=== PATIENT | female | born 1965 | race Caucasian/White ===

== ENCOUNTER → 2017-03-02 | Outpatient (CLI) | payer MEDICARE ==
[~2017-03-02] MED LIST: ANAS1TAB PO; DEXA2TAB PO; GADOBUTROL 7.5 MMOL/7.5 ML VIAL ONE; HYDR5SUS PO; LETR2.5T PO; METH500T7 PO; OXYC5CAP4 PO
== END | disposition home or self-care (01) ==
LOC: CFH 09:09
PROVIDERS: ATTEND Neurological Surgery
DX: C79.31 Secondary malignant neoplasm of brain (principal); C76.8 Malignant neoplasm of other specified ill-defined sites; G93.89 Other specified disorders of brain; Z98.890 Other specified postprocedural states
CPT/HCPCS: 70553; A9585

== ENCOUNTER → 2017-04-14 | Outpatient (CLI) | payer MEDICARE ==
[~2017-04-14] MED LIST changes: -GADOBUTROL 7.5 MMOL/7.5 ML VIAL ONE; +OMNIPAQUE 350 MG/ML, 100ML BOTTLE ONE
== END | disposition home or self-care (01) ==
LOC: CFH 14:31
PROVIDERS: ATTEND Internal Medicine Hematology & Oncology
DX: C50.912 Malignant neoplasm of unspecified site of left female breast (principal); C79.51 Secondary malignant neoplasm of bone; R91.8 Other nonspecific abnormal finding of lung field; G95.89 Other specified diseases of spinal cord; K76.9 Liver disease, unspecified; Z90.49 Acquired absence of other specified parts of digestive tract; Z90.710 Acquired absence of both cervix and uterus
CPT/HCPCS: 71260; 74177; Q9967

== ENCOUNTER → 2017-06-01 | Outpatient (CLI) | payer MEDICARE ==
[~2017-06-01] MED LIST changes: +DEXA4TAB PO; +GADOBUTROL 7.5 MMOL/7.5 ML VIAL ONE; +LAPA250T PO; -OMNIPAQUE 350 MG/ML, 100ML BOTTLE ONE
== END | disposition home or self-care (01) ==
LOC: CFH 14:36
PROVIDERS: ATTEND Radiology Radiation Oncology
DX: C79.31 Secondary malignant neoplasm of brain (principal); C50.919 Malignant neoplasm of unspecified site of unspecified female breast; G93.6 Cerebral edema
CPT/HCPCS: 70553; A9585

== ENCOUNTER → 2017-06-05 | Outpatient (CLI) | payer MEDICARE ==
[~2017-06-05] MED LIST changes: -GADOBUTROL 7.5 MMOL/7.5 ML VIAL ONE
== END | disposition home or self-care (01) ==
LOC: ROC 14:40
PROVIDERS: ATTEND Radiology Radiation Oncology
DX: C50.912 Malignant neoplasm of unspecified site of left female breast (principal); C78.02 Secondary malignant neoplasm of left lung; C78.01 Secondary malignant neoplasm of right lung; C79.51 Secondary malignant neoplasm of bone; C79.31 Secondary malignant neoplasm of brain; C78.7 Secondary malignant neoplasm of liver and intrahepatic bile duct; Z92.21 Personal history of antineoplastic chemotherapy
CPT/HCPCS: G0463

== ENCOUNTER → 2017-10-02 | Outpatient (CLI) | payer MEDICARE ==
[~2017-10-02] MED LIST changes: +OMNIPAQUE 350 MG/ML, 100ML BOTTLE ONE; +OXYC5CAP2 PO; -OXYC5CAP4 PO
== END | disposition home or self-care (01) ==
LOC: CFH 12:39
PROVIDERS: ATTEND Internal Medicine Hematology & Oncology
DX: R91.8 Other nonspecific abnormal finding of lung field (principal); C50.912 Malignant neoplasm of unspecified site of left female breast; K76.89 Other specified diseases of liver; M89.8X8 Other specified disorders of bone, other site
CPT/HCPCS: 71260; 74177; Q9967

== ENCOUNTER → 2017-10-05 | Outpatient (CLI) | payer MEDICARE ==
[~2017-10-05] MED LIST changes: +GADOBUTROL 7.5 MMOL/7.5 ML PFS ONE; -OMNIPAQUE 350 MG/ML, 100ML BOTTLE ONE
== END | disposition home or self-care (01) ==
LOC: CFH 08:27
PROVIDERS: ATTEND Radiology Radiation Oncology
DX: C79.31 Secondary malignant neoplasm of brain (principal); C50.919 Malignant neoplasm of unspecified site of unspecified female breast; E11.9 Type 2 diabetes mellitus without complications
CPT/HCPCS: 70553; A9585

== ENCOUNTER → 2017-10-25 | Outpatient (CLI) | payer MEDICARE ==
[~2017-10-25] MED LIST changes: -GADOBUTROL 7.5 MMOL/7.5 ML PFS ONE
== END | disposition home or self-care (01) ==
LOC: ROC 10:48
PROVIDERS: ATTEND Radiology Radiation Oncology
DX: Z08 Encounter for follow-up examination after completed treatment for malignant neoplasm (principal); C50.919 Malignant neoplasm of unspecified site of unspecified female breast; C78.00 Secondary malignant neoplasm of unspecified lung; C78.7 Secondary malignant neoplasm of liver and intrahepatic bile duct; C79.31 Secondary malignant neoplasm of brain; Z92.21 Personal history of antineoplastic chemotherapy
CPT/HCPCS: G0463

== ENCOUNTER → 2017-11-27 | Outpatient (CLI) | payer MEDICARE | LOC: ROC 09:06 | PROVIDERS: ATTEND Radiology Radiation Oncology | DX: Z02.9 Encounter for administrative examinations, unspecified (principal) ==

== ENCOUNTER → 2018-04-27 | Outpatient (CLI) | payer MEDICARE ==
[~2018-04-27] MED LIST changes: +LEVE500T53 PO; +MULT-231 PO
== END | disposition home or self-care (01) ==
LOC: CVU 11:40
PROVIDERS: ATTEND Internal Medicine Hematology & Oncology
DX: C50.912 Malignant neoplasm of unspecified site of left female breast (principal)
CPT/HCPCS: 93306

== ENCOUNTER 2018-05-04 07:59 | Inpatient (IN) | payer MEDICARE ==
[~2018-05-04] VITALS: Ht 154.9 cm; Wt 52.0 kg
[2018-05-04] MEDS ORDERED: MORPHINE SULFATE 4 MG/ML, 1ML ONE (08:44)
[2018-05-04] MEDS ORDERED: SODIUM CHLORIDE FLUSH 10ML SYR IVF ONE (09:00)
[2018-05-04] MEDS ORDERED: MORPHINE SULFATE 4 MG/ML, 1ML IVPush PRN (09:00)
[2018-05-04 09:44] LABS: MEAN CORPUSCULAR HEMOGLOBIN 33.2 pg (27.0-34.8); MEAN CORPUSCULAR HGB CONC 34.2 g/dL (32.4-35.8); MEAN CORPUSCULAR VOLUME 96.9 fL (80-100); MEAN PLATELET VOLUME 8.3 fL (7.4-10.4); PLATELET COUNT 143 x10^3/uL (130-400); RED BLOOD COUNT 3.63 x10^6/uL (3.82-5.3); RED CELL DISTRIBUTION WIDTH 16.4 % (9.6-15.2)
[2018-05-04 09:50] LABS: ALBUMIN 2.7 g/dL (3.4-5.0); ANION GAP 7 mmol/L (5-15); CALCIUM 8.8 mg/dL (8.5-10.1); CHLORIDE 109 mmol/L (98-107); CREATININE 0.52 mg/dL (0.55-1.02)
[2018-05-04] MEDS ORDERED: GLUCAGON 1 MG IM PRN (10:30)
[2018-05-04] MEDS ORDERED: ACETAMINOPHEN 325 MG TABLET PO PRN (10:30)
[2018-05-04] MEDS ORDERED: DEXTROSE 4 GM TAB.CHEW PO PRN (10:30)
[2018-05-04] MEDS: DEXAMETHASONE 4 MG TABLET PO SCH ×3 (10:30→20:51)
[2018-05-04] MEDS ORDERED: DOCUSATE 100 MG CAPSULE PO PRN (10:30)
[2018-05-04] MEDS ORDERED: DEXTROSE 50%, 50ML SYRINGE IVPush PRN (10:30)
[2018-05-04] MEDS ORDERED: ONDANSETRON ODT 4 MG PO PRN (10:30)
[2018-05-04] MEDS ORDERED: POLYETHYLENE GLYCOL 17 GM PACKET PO PRN (10:30)
[2018-05-04] MEDS ORDERED: METHOCARBAMOL 500 MG TABLET PO PRN (10:30)
[2018-05-04 10:35] LABS: MD YES
[2018-05-04 10:36] LABS: <PLATELET ESTIMATE> ADEQUATE; <PLT MORPHOLOGY> NORMAL PLT MORPH; <RBC MORPHOLOGY> NORMAL; BAND#(MANUAL) 0.22 x10^3/uL; BANDS%(MANUAL) 2 % (0-7); LYMPH#(MANUAL) 0.22 x10^3/uL (1-3.4); LYMPHS% (MANUAL) 2 % (22-44); SEG#(MANUAL) 10.66 x10^3/uL (1.8-6.8); SEGS% (MANUAL) 96 % (42-75)
[2018-05-04 10:57] LABS: THYROID STIMULATING HORMONE 0.431 mIU/L (0.358-3.740)
[2018-05-04] MEDS ORDERED: ENALAPRILAT 1.25 MG/ML, 2ML IV PRN (11:00)
[2018-05-04] MEDS ORDERED: CALCIUM CARBONATE 500 MG TAB.CHEW PO PRN (11:00)
[2018-05-04] MEDS ORDERED: POTASSIUM CHLORIDE 20 MEQ TAB.ER.PRT PO ONE (11:00)
[2018-05-04] MEDS ORDERED: DEXAMETHASONE 4 MG TABLET ONE (11:01)
[2018-05-04] MEDS ORDERED: LORazepam 2 MG/ML, 1ML ONE (12:03)
[2018-05-04] MEDS ORDERED: GADOBUTROL 10 MMOL/10 ML PFS ONE (12:36)
[2018-05-04] MEDS: PANTOPRAZOLE 40 MG IV IVPush SCH (14:45)
[2018-05-04] MEDS: HEPARIN 5,000 UNITS/ML, 1ML SQ SCH ×2 (14:45→20:50)
[2018-05-04] MEDS: INSULIN LISPRO 100 UNITS/ML, PEN SQ-INSULIN SCH ×3 (15:00→20:50)
[2018-05-04] MEDS: CALCIUM CARBONATE 500 MG TAB.CHEW PO SCH ×2 (15:55→20:52)
[2018-05-04] MEDS: MORPHINE SULFATE 4 MG/ML, 1ML IVPush PRN (15:55)
[2018-05-04 16:26] LABS: MICROSCOPIC AUTO
[2018-05-04 16:29] LABS: CULTURE INDICATED? YES
[2018-05-04] MEDS ORDERED: ALUMINUM/MAG/SIMETHICONE 30 ML UDC PO PRN (18:00)
[2018-05-04 19:20] VITALS: BP 146/77
[2018-05-04] MEDS: SODIUM CHLORIDE FLUSH 10ML SYR IVF SCH (20:51)
[2018-05-05 01:06] VITALS: BP 139/89
[2018-05-05 05:39] LABS: MEAN CORPUSCULAR HEMOGLOBIN 33.3 pg (27.0-34.8); MEAN CORPUSCULAR VOLUME 97.9 fL (80-100); MEAN PLATELET VOLUME 8.8 fL (7.4-10.4); PLATELET COUNT 128 x10^3/uL (130-400); RED BLOOD COUNT 3.43 x10^6/uL (3.82-5.3); RED CELL DISTRIBUTION WIDTH 16.8 % (9.6-15.2)
[2018-05-05 05:45] LABS: ANION GAP 6 mmol/L (5-15); CALCIUM 9.7 mg/dL (8.5-10.1); CHLORIDE 108 mmol/L (98-107)
[2018-05-05] MEDS: HEPARIN 5,000 UNITS/ML, 1ML SQ SCH ×3 (06:10→21:26)
[2018-05-05 06:17] LABS: MD YES
[2018-05-05 06:20] LABS: BAND#(MANUAL) 2.19 x10^3/uL; BANDS%(MANUAL) 19 % (0-7); LYMPH#(MANUAL) 0.92 x10^3/uL (1-3.4); LYMPHS% (MANUAL) 8 % (22-44); MONOS#(MANUAL) 0.58 x10^3/uL (0.3-2.7); MONOS% (MANUAL) 5 % (2-9); SEG#(MANUAL) 7.82 x10^3/uL (1.8-6.8); SEGS% (MANUAL) 68 % (42-75)
[2018-05-05 06:21] LABS: <PLATELET ESTIMATE> DECREASED; <PLT MORPHOLOGY> NORMAL PLT MORPH; POLYCHROMASIA 1+
[2018-05-05 06:23] LABS: TOXIC GRAN 1+
[2018-05-05 07:24] VITALS: BP 147/90
[2018-05-05] MEDS: DEXAMETHASONE 4 MG TABLET PO SCH ×3 (08:05→21:26)
[2018-05-05] MEDS: CALCIUM CARBONATE 500 MG TAB.CHEW PO SCH ×3 (08:05→21:26)
[2018-05-05] MEDS: CHOLECALCIFEROL 1,000 UNIT TABLET PO SCH (08:05)
[2018-05-05] MEDS: PANTOPRAZOLE 40 MG IV IVPush SCH (08:05)
[2018-05-05] MEDS: SODIUM CHLORIDE FLUSH 10ML SYR IVF SCH ×2 (08:06→21:27)
[2018-05-05] MEDS: INSULIN LISPRO 100 UNITS/ML, PEN SQ-INSULIN SCH ×4 (08:08→21:30)
[2018-05-05] MEDS: MORPHINE SULFATE 4 MG/ML, 1ML IVPush PRN ×4 (08:17→18:11)
[2018-05-05 10:34] LABS: INTERNATIONAL NORMALIZED RATIO 0.88 (0.93-1.1); PROTHROMBIN TIME 9.1 Seconds (9.6-11.5)
[2018-05-05 14:00] VITALS: BP 137/89
[2018-05-05 18:49] VITALS: BP 145/94
[2018-05-05] MEDS: KETOROLAC 30 MG/1 ML IVPush PRN (19:37)
[2018-05-06 01:06] VITALS: BP 138/91
[2018-05-06] MEDS: MORPHINE SULFATE 4 MG/ML, 1ML IVPush PRN ×5 (04:10→19:24)
[2018-05-06] MEDS: HEPARIN 5,000 UNITS/ML, 1ML SQ SCH ×3 (04:44→20:55)
[2018-05-06] MEDS: KETOROLAC 30 MG/1 ML IVPush PRN ×3 (04:44→18:34)
[2018-05-06 05:15] VITALS: BP 136/81
[2018-05-06 05:24] LABS: MEAN CORPUSCULAR HEMOGLOBIN 33.3 pg (27.0-34.8); MEAN CORPUSCULAR HGB CONC 34.2 g/dL (32.4-35.8); MEAN CORPUSCULAR VOLUME 97.4 fL (80-100); MEAN PLATELET VOLUME 8.8 fL (7.4-10.4); PLATELET COUNT 119 x10^3/uL (130-400); RED BLOOD COUNT 3.55 x10^6/uL (3.82-5.3); RED CELL DISTRIBUTION WIDTH 16.6 % (9.6-15.2)
[2018-05-06 05:36] LABS: ALANINE AMINOTRANSFERASE 68 U/L (12-78); ALBUMIN 2.1 g/dL (3.4-5.0); ANION GAP 6 mmol/L (5-15); CALCIUM 9.9 mg/dL (8.5-10.1); CHLORIDE 104 mmol/L (98-107); CREATININE 0.53 mg/dL (0.55-1.02)
[2018-05-06 05:39] LABS: ALKALINE PHOSPHATASE 156 U/L (45-117); BILIRUBIN,TOTAL 0.4 mg/dL (0.2-1.0); TOTAL PROTEIN 6.6 g/dL (6.4-8.2)
[2018-05-06 05:51] LABS: MD YES
[2018-05-06 05:54] LABS: <PLATELET ESTIMATE> DECREASED; <PLT MORPHOLOGY> NORMAL PLT MORPH; ANISOCYTOSIS 1+; BAND#(MANUAL) 1.96 x10^3/uL; BANDS%(MANUAL) 20 % (0-7); LYMPHS% (MANUAL) 1 % (22-44); MONOS% (MANUAL) 1 % (2-9); SEG#(MANUAL) 7.64 x10^3/uL (1.8-6.8); SEGS% (MANUAL) 78 % (42-75)
[2018-05-06 07:10] VITALS: BP 147/87
[2018-05-06] MEDS: CHOLECALCIFEROL 1,000 UNIT TABLET PO SCH (08:15)
[2018-05-06] MEDS: SODIUM CHLORIDE FLUSH 10ML SYR IVF SCH ×2 (08:15→19:24)
[2018-05-06] MEDS: DEXAMETHASONE 4 MG TABLET PO SCH ×3 (08:15→20:55)
[2018-05-06] MEDS: CALCIUM CARBONATE 500 MG TAB.CHEW PO SCH ×3 (08:15→20:55)
[2018-05-06] MEDS: PANTOPRAZOLE 40 MG IV IVPush SCH (08:18)
[2018-05-06] MEDS: CEFTRIAXONE PMX 2GM/50ML 50 ML IV SCH (08:18)
[2018-05-06] MEDS: INSULIN LISPRO 100 UNITS/ML, PEN SQ-INSULIN SCH ×4 (08:28→20:40)
[2018-05-06 12:35] VITALS: BP 129/84
[2018-05-06 18:53] VITALS: BP 124/83
[2018-05-06] MEDS: INSULIN GLARGINE 100 UNITS/ML, PEN SQ-INSULIN SCH (20:56)
[2018-05-07] MEDS: MORPHINE SULFATE 4 MG/ML, 1ML IVPush PRN ×7 (00:12→21:52)
[2018-05-07] MEDS: KETOROLAC 30 MG/1 ML IVPush PRN (00:12)
[2018-05-07 03:25] VITALS: BP 146/87
[2018-05-07 04:30] LABS: MEAN CORPUSCULAR HGB CONC 34.3 g/dL (32.4-35.8); MEAN CORPUSCULAR VOLUME 96.2 fL (80-100); RED BLOOD COUNT 3.23 x10^6/uL (3.82-5.3); RED CELL DISTRIBUTION WIDTH 16.6 % (9.6-15.2)
[2018-05-07 04:37] LABS: ANION GAP 6 mmol/L (5-15); CALCIUM 9.3 mg/dL (8.5-10.1); CHLORIDE 105 mmol/L (98-107); CREATININE 0.42 mg/dL (0.55-1.02)
[2018-05-07 04:41] LABS: MD YES
[2018-05-07 04:42] LABS: MEAN PLATELET VOLUME 9.6 fL (7.4-10.4); PLATELET COUNT 96 x10^3/uL (130-400)
[2018-05-07 04:44] LABS: ANISOCYTOSIS 1+; BAND#(MANUAL) 2.16 x10^3/uL; BANDS%(MANUAL) 27 % (0-7); LYMPH#(MANUAL) 0.48 x10^3/uL (1-3.4); LYMPHS% (MANUAL) 6 % (22-44); NRBC % (MANUAL) 2 % (0-1); SEG#(MANUAL) 5.36 x10^3/uL (1.8-6.8); SEGS% (MANUAL) 67 % (42-75)
[2018-05-07 04:45] LABS: <PLATELET ESTIMATE> DECREASED; LARGE PLATELETS 1+; POLYCHROMASIA 1+
[2018-05-07] MEDS: HEPARIN 5,000 UNITS/ML, 1ML SQ SCH ×3 (05:21→21:54)
[2018-05-07 06:31] VITALS: BP 122/80
[2018-05-07] MEDS: CEFTRIAXONE PMX 2GM/50ML 50 ML IV SCH (08:13)
[2018-05-07] MEDS: DEXAMETHASONE 4 MG TABLET PO SCH ×3 (08:14→21:53)
[2018-05-07] MEDS: CALCIUM CARBONATE 500 MG TAB.CHEW PO SCH ×3 (08:14→21:52)
[2018-05-07] MEDS: PANTOPRAZOLE 40 MG IV IVPush SCH (08:14)
[2018-05-07] MEDS: CHOLECALCIFEROL 1,000 UNIT TABLET PO SCH (08:14)
[2018-05-07] MEDS: INSULIN LISPRO 100 UNITS/ML, PEN SQ-INSULIN SCH ×4 (08:15→21:53)
[2018-05-07] MEDS: SODIUM CHLORIDE FLUSH 10ML SYR IVF SCH ×2 (09:00→21:52)
[2018-05-07 12:00] VITALS: BP 155/95
[2018-05-07] MEDS: DOXYCYCLINE 100 MG in DEXTROSE 5% 250 ML IV SCH (16:40)
[2018-05-07] MEDS: NYSTATIN 500,000 UNITS/5 ML UDC PO SCH ×2 (16:41→21:52)
[2018-05-07 19:01] VITALS: BP 157/92
[2018-05-07] MEDS: INSULIN GLARGINE 100 UNITS/ML, PEN SQ-INSULIN SCH (21:53)
[2018-05-08] MEDS: HEPARIN 5,000 UNITS/ML, 1ML SQ SCH ×3 (00:50→21:16)
[2018-05-08] MEDS: NYSTATIN 500,000 UNITS/5 ML UDC PO SCH ×4 (00:50→21:16)
[2018-05-08] MEDS: MORPHINE SULFATE 4 MG/ML, 1ML IVPush PRN ×8 (01:54→21:16)
[2018-05-08 01:58] VITALS: BP 148/88
[2018-05-08] MEDS: DOXYCYCLINE 100 MG in DEXTROSE 5% 250 ML IV SCH ×2 (03:59→16:10)
[2018-05-08 07:55] VITALS: BP_SYST 109; BP_SYST 165; BP_DIAS 59; BP_DIAS 92
[2018-05-08] MEDS: PANTOPRAZOLE 40 MG IV IVPush SCH (08:00)
[2018-05-08] MEDS: CEFTRIAXONE PMX 2GM/50ML 50 ML IV SCH (08:01)
[2018-05-08] MEDS: INSULIN LISPRO 100 UNITS/ML, PEN SQ-INSULIN SCH ×4 (08:01→21:29)
[2018-05-08] MEDS: SODIUM CHLORIDE FLUSH 10ML SYR IVF SCH ×2 (08:01→21:16)
[2018-05-08] MEDS ORDERED: MEPERIDINE/PF 50 MG/ML ONE (10:06)
[2018-05-08] MEDS ORDERED: MIDAZOLAM 1 MG/ML, 5ML ONE (10:06)
[2018-05-08] MEDS ORDERED: FENTANYL PF 100 MCG/2ML ONE (10:06)
[2018-05-08] MEDS ORDERED: PROMETHAZINE 25 MG/ML, 1ML ONE (10:07)
[2018-05-08 13:38] VITALS: BP 162/108
[2018-05-08] MEDS: CALCIUM CARBONATE 500 MG TAB.CHEW PO SCH ×3 (13:38→21:00)
[2018-05-08] MEDS: DEXAMETHASONE 4 MG TABLET PO SCH ×3 (13:38→21:16)
[2018-05-08] MEDS: CHOLECALCIFEROL 1,000 UNIT TABLET PO SCH (13:38)
[2018-05-08 19:04] VITALS: BP 113/63
[2018-05-08] MEDS: INSULIN GLARGINE 100 UNITS/ML, PEN SQ-INSULIN SCH (21:29)
[2018-05-09 01:08] VITALS: BP 107/58
[2018-05-09] MEDS: MORPHINE SULFATE 4 MG/ML, 1ML IVPush PRN (01:09)
[2018-05-09] MEDS: DOXYCYCLINE 100 MG in DEXTROSE 5% 250 ML IV SCH ×2 (03:59→15:45)
[2018-05-09] MEDS: HEPARIN 5,000 UNITS/ML, 1ML SQ SCH ×3 (04:16→20:44)
[2018-05-09] MEDS: NYSTATIN 500,000 UNITS/5 ML UDC PO SCH ×4 (05:31→20:43)
[2018-05-09 06:33] VITALS: BP 137/93
[2018-05-09] MEDS: CEFTRIAXONE PMX 2GM/50ML 50 ML IV SCH (07:36)
[2018-05-09] MEDS: PANTOPRAZOLE 40 MG IV IVPush SCH (07:36)
[2018-05-09] MEDS: SODIUM CHLORIDE FLUSH 10ML SYR IVF SCH ×2 (07:38→20:43)
[2018-05-09] MEDS: INSULIN LISPRO 100 UNITS/ML, PEN SQ-INSULIN SCH ×4 (07:38→20:50)
[2018-05-09] MEDS: CALCIUM CARBONATE 500 MG TAB.CHEW PO SCH ×3 (09:00→20:43)
[2018-05-09] MEDS: CHOLECALCIFEROL 1,000 UNIT TABLET PO SCH (09:45)
[2018-05-09] MEDS: DEXAMETHASONE 4 MG TABLET PO SCH ×3 (09:45→20:43)
[2018-05-09] MEDS: INSULIN GLARGINE 100 UNITS/ML, PEN SQ-INSULIN SCH ×2 (09:52→20:50)
[2018-05-09 10:31] LABS: ANION GAP 7 mmol/L (5-15); CALCIUM 8.9 mg/dL (8.5-10.1); CHLORIDE 100 mmol/L (98-107); CREATININE 0.54 mg/dL (0.55-1.02)
[2018-05-09 10:35] LABS: BASOPHILS # (AUTO) 0.01 x10^3/uL (0-0.1); BASOPHILS % (AUTO) 0 % (0-1); EOSINOPHILS % (AUTO) 0 % (1-7); LYMPHOCYTES # (AUTO) 0.46 x10^3/uL (1-3.4); LYMPHOCYTES % (AUTO) 6 % (22-44); MD NO; MEAN CORPUSCULAR HEMOGLOBIN 32.7 pg (27.0-34.8); MEAN CORPUSCULAR HGB CONC 34.1 g/dL (32.4-35.8); MEAN CORPUSCULAR VOLUME 95.7 fL (80-100); MEAN PLATELET VOLUME 8.9 fL (7.4-10.4); MONOCYTES # (AUTO) 0.13 x10^3/uL (0.2-0.8); MONOCYTES % (AUTO) 2 % (2-9); NEUTROPHILS # (AUTO) 6.64 x10^3/uL (1.8-6.8); NEUTROPHILS % (AUTO) 92 % (42-75); PLATELET COUNT 129 x10^3/uL (130-400); RED BLOOD COUNT 3.39 x10^6/uL (3.82-5.3); RED CELL DISTRIBUTION WIDTH 15.9 % (9.6-15.2)
[2018-05-09] MEDS ORDERED: POTASSIUM CHLORIDE 20 MEQ TAB.ER.PRT PO ONE (11:30)
[2018-05-09 14:36] VITALS: BP 140/88
[2018-05-09] MEDS: SODIUM CHLORIDE 0.9% 1,000 ML IV SCH (15:46)
[2018-05-09 19:00] VITALS: BP 130/88
[2018-05-10 01:00] VITALS: BP 123/82
[2018-05-10] MEDS: SODIUM CHLORIDE 0.9% 1,000 ML IV SCH ×2 (04:09→20:49)
[2018-05-10] MEDS: DOXYCYCLINE 100 MG in DEXTROSE 5% 250 ML IV SCH ×2 (04:09→20:48)
[2018-05-10] MEDS: HYDROcodone/APAP 5/325 TABLET PO PRN (04:29)
[2018-05-10] MEDS: HEPARIN 5,000 UNITS/ML, 1ML SQ SCH ×3 (04:30→20:44)
[2018-05-10 04:50] LABS: MEAN CORPUSCULAR HEMOGLOBIN 33.1 pg (27.0-34.8); MEAN CORPUSCULAR VOLUME 97.4 fL (80-100); MEAN PLATELET VOLUME 9.2 fL (7.4-10.4); PLATELET COUNT 119 x10^3/uL (130-400); RED BLOOD COUNT 3.09 x10^6/uL (3.82-5.3); RED CELL DISTRIBUTION WIDTH 16.5 % (9.6-15.2)
[2018-05-10 04:58] LABS: ALBUMIN 1.8 g/dL (3.4-5.0); ANION GAP 4 mmol/L (5-15); CALCIUM 8.4 mg/dL (8.5-10.1); CHLORIDE 106 mmol/L (98-107)
[2018-05-10 05:01] LABS: ALANINE AMINOTRANSFERASE 57 U/L (12-78); ALKALINE PHOSPHATASE 172 U/L (45-117); BILIRUBIN,TOTAL 0.3 mg/dL (0.2-1.0); CREATININE 0.36 mg/dL (0.55-1.02); TOTAL PROTEIN 5.6 g/dL (6.4-8.2)
[2018-05-10 05:39] LABS: MD YES
[2018-05-10 05:42] LABS: <PLATELET ESTIMATE> DECREASED; ANISOCYTOSIS 1+; BANDS%(MANUAL) 5 % (0-7); LARGE PLATELETS 1+; LYMPH#(MANUAL) 0.56 x10^3/uL (1-3.4); LYMPHS% (MANUAL) 7 % (22-44); METAMYELOCYTES# (MANUAL) 0.32 x10^3/uL (0-0); METAMYELOCYTES% (MANUAL) 4 % (0-1); MONOS#(MANUAL) 0.24 x10^3/uL (0.3-2.7); MONOS% (MANUAL) 3 % (2-9); MYELOCYTES# (MANUAL) 0.08 x10^3/uL (0-0); MYELOCYTES% (MANUAL) 1 % (0-0); NRBC % (MANUAL) 1 % (0-1); SEGS% (MANUAL) 80 % (42-75)
[2018-05-10 05:43] LABS: TOXIC GRAN 1+
[2018-05-10] MEDS: NYSTATIN 500,000 UNITS/5 ML UDC PO SCH ×4 (05:54→20:43)
[2018-05-10 06:30] VITALS: BP 153/97
[2018-05-10] MEDS: INSULIN LISPRO 100 UNITS/ML, PEN SQ-INSULIN SCH ×4 (07:44→20:47)
[2018-05-10] MEDS: PANTOPROZOLE 40MG TABLET PO SCH (07:44)
[2018-05-10] MEDS: DEXAMETHASONE 4 MG TABLET PO SCH ×3 (07:44→20:43)
[2018-05-10] MEDS: CALCIUM CARBONATE 500 MG TAB.CHEW PO SCH ×3 (07:44→20:43)
[2018-05-10] MEDS: CHOLECALCIFEROL 1,000 UNIT TABLET PO SCH (07:44)
[2018-05-10] MEDS: SODIUM CHLORIDE FLUSH 10ML SYR IVF SCH ×2 (07:45→20:49)
[2018-05-10] MEDS: CEFTRIAXONE PMX 2GM/50ML 50 ML IV SCH (07:45)
[2018-05-10] MEDS: INSULIN GLARGINE 100 UNITS/ML, PEN SQ-INSULIN SCH ×2 (09:31→20:48)
[2018-05-10 12:30] VITALS: BP 136/88
[2018-05-10] MEDS: MORPHINE SULFATE 4 MG/ML, 1ML IVPush PRN (16:02)
[2018-05-10 18:57] VITALS: BP 138/98
[2018-05-11] MEDS: HYDROcodone/APAP 5/325 TABLET PO PRN (01:10)
[2018-05-11 02:05] VITALS: BP 141/77
[2018-05-11] MEDS: NYSTATIN 500,000 UNITS/5 ML UDC PO SCH (05:19)
[2018-05-11] MEDS: HEPARIN 5,000 UNITS/ML, 1ML SQ SCH (05:19)
[2018-05-11] MEDS: SODIUM CHLORIDE 0.9% 1,000 ML IV SCH (05:20)
[2018-05-11] MEDS: INSULIN GLARGINE 100 UNITS/ML, PEN SQ-INSULIN SCH (07:27)
[2018-05-11] MEDS: INSULIN LISPRO 100 UNITS/ML, PEN SQ-INSULIN SCH (07:27)
[2018-05-11] MEDS: DOXYCYCLINE 100 MG in DEXTROSE 5% 250 ML IV SCH (07:30)
[2018-05-11] MEDS: SODIUM CHLORIDE FLUSH 10ML SYR IVF SCH (07:30)
[2018-05-11] MEDS: PANTOPROZOLE 40MG TABLET PO SCH (07:30)
[2018-05-11] MEDS: CEFTRIAXONE PMX 2GM/50ML 50 ML IV SCH (07:30)
[2018-05-11] MEDS: CALCIUM CARBONATE 500 MG TAB.CHEW PO SCH (07:30)
[2018-05-11] MEDS: DEXAMETHASONE 4 MG TABLET PO SCH (07:30)
[2018-05-11] MEDS: CHOLECALCIFEROL 1,000 UNIT TABLET PO SCH (07:30)
[2018-05-11 07:53] VITALS: BP 157/106
[2018-05-11] MEDS ORDERED: SULF1TAB24 PO (09:10)
[2018-05-11] MEDS ORDERED: LACT1CAP24 PO (09:10)
[2018-05-11] MEDS: MORPHINE SULFATE 4 MG/ML, 1ML IVPush PRN (09:33)
[2018-05-11] MEDS ORDERED: PRED20TA PO (11:32)
[2018-05-11] MEDS ORDERED: DEXA4TAB66 PO (11:36)
== END 2018-05-11 10:47 | disposition home or self-care (01) | DRG 853 ==
LOC: ED 08:15 → EDIP 09:43 → 3NW 13:39
PROVIDERS: ADMIT Internal Medicine; ATTEND Internal Medicine
PROC: 0QS03ZZ Reposition Lumbar Vertebra, Percutaneous Approach (ICD-10-PCS; principal; 2018-05-08)
PROC: 0QU03JZ Supplement Lumbar Vertebra with Synthetic Substitute, Percutaneous Approach (ICD-10-PCS; 2018-05-08)
PROC: 0PS43ZZ Reposition Thoracic Vertebra, Percutaneous Approach (ICD-10-PCS; 2018-05-08)
PROC: 0PU43JZ Supplement Thoracic Vertebra with Synthetic Substitute, Percutaneous Approach (ICD-10-PCS; 2018-05-08)
DX: A41.9 Sepsis, unspecified organism (principal); E43 Unspecified severe protein-calorie malnutrition; J96.01 Acute respiratory failure with hypoxia; J18.9 Pneumonia, unspecified organism; M48.55XA Collapsed vertebra, not elsewhere classified, thoracolumbar region, initial encounter for fracture; N39.0 Urinary tract infection, site not specified; C79.51 Secondary malignant neoplasm of bone; C78.7 Secondary malignant neoplasm of liver and intrahepatic bile duct; Q78.2 Osteopetrosis; D89.9 Disorder involving the immune mechanism, unspecified; B96.20 Unspecified Escherichia coli [E. coli] as the cause of diseases classified elsewhere; C50.919 Malignant neoplasm of unspecified site of unspecified female breast; E11.65 Type 2 diabetes mellitus with hyperglycemia; E87.6 Hypokalemia; G89.29 Other chronic pain; I10 Essential (primary) hypertension; Z51.5 Encounter for palliative care; Z90.49 Acquired absence of other specified parts of digestive tract; Z90.711 Acquired absence of uterus with remaining cervical stump; Z85.3 Personal history of malignant neoplasm of breast; Z79.52 Long term (current) use of systemic steroids; Z90.10 Acquired absence of unspecified breast and nipple; Z68.21 Body mass index [BMI] 21.0-21.9, adult; X58.XXXA Exposure to other specified factors, initial encounter; Y93.89 Activity, other specified; Y92.89 Other specified places as the place of occurrence of the external cause; Y99.8 Other external cause status
CPT/HCPCS: 22512; 22514; 36415; 71045; 72128; 72131; 72157; 72158; 80048; 80053; 81001; 82040; 82306; 82947; 82962; 83036; 83735; 84100; 84443; 85025; 85610; 87040; 87077; 87086; 87147; 87186; 93005; 96374; 99156; 99157; A9585; J0696; J1644; J1885; J2175; J2250; J2550; J3010; J7060; Q0162; C9113; C9359; J1815; J7030